=== PATIENT | male | born 1995 | race Two or more races ===

== ENCOUNTER 2016-12-20 15:17 | Emergency (ER) | payer SELFPAY ==
[~2016-12-20] VITALS: Ht 165.1 cm; Wt 65.8 kg
--- NOTE | 2016-12-20 15:32 | PHYS DOC ---
Adult General Chief Complaint Chief Complaint: HEAT EXPOSURE HPI HPI Patient is a 21 year old male who presents with one to 2 hour history of sharp left-sided chest discomfort slightly worse with breathing. Increases with movement of the left arm; denies shortness of breath; mild nausea; no vomiting no diarrhea. 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 He's had these exact symptoms prior to this for several months on and off and was treated for chest inflammation about 2 weeks ago. Review of Systems Review of Systems Constitutional: Denies fever or chills [] Eyes: Denies change in visual acuity, redness, or eye pain [] HENT: Denies nasal congestion or sore throat [] Respiratory: Denies cough or shortness of breath [] Cardiovascular: No additional information not addressed in HPI [] GI: Denies abdominal pain, nausea, vomiting, bloody stools or diarrhea [] : Denies dysuria or hematuria [] Musculoskeletal: Denies back pain or joint pain [] Integument: Denies rash or skin lesions [] Neurologic: Denies headache, focal weakness or sensory changes [] Endocrine: Denies polyuria or polydipsia [] Current Medications Current Medications Current Medications Medications (Trade) Dose Ordered Sig/Sylvie Start Time Stop Time Status Last Admin Dose Admin Ketorolac Tromethamine (Toradol) 30 mg 1X ONCE 12/20/16 16:15 12/20/16 16:16 DC 12/20/16 16:14 30 MG Lorazepam (Ativan) 0.5 mg 1X ONCE 12/20/16 16:15 12/20/16 16:16 DC 12/20/16 16:15 0.5 MG Sodium Chloride 1,000 ml @ 1,000 mls/hr 1X ONCE 12/20/16 16:15 12/20/16 17:02 DC 12/20/16 16:13 1,000 MLS/HR Allergies Allergies Allergies Coded Allergies Type Severity Reaction Last Updated Verified No Known Drug Allergies 12/20/16 No Physical Exam Physical Exam Constitutional: Well developed, well nourished, no acute distress, non-toxic appearance. [] HENT: Normocephalic, atraumatic, bilateral external ears normal, oropharynx moist, no oral exudates, nose normal. [] Eyes: PERRLA, EOMI, conjunctiva normal, no discharge. [] Neck: Normal range of motion, no tenderness, supple, no stridor. [] Cardiovascular:Heart rate regular rhythm, no murmur [] Lungs & Thorax: Bilateral breath sounds clear to auscultation [tender to palpation left lateral chest.] Abdomen: Bowel sounds normal, soft, no tenderness, no masses, no pulsatile masses. [] Skin: Warm, dry, no erythema, no rash. [] Back: No tenderness, no CVA tenderness. [] Extremities: No tenderness, no cyanosis, no clubbing, ROM intact, no edema. [] Neurologic: Alert and oriented X 3, normal motor function, normal sensory function, no focal deficits noted. [] Psychologic: Affect normal, judgement normal, mood normal. [] Current Patient Data Vital Signs Vital Signs Date Time Temp Pulse Resp B/P (MAP) Pulse Ox O2 Delivery O2 Flow Rate FiO2 12/20/16 16:30 62 21 119/72 (88) 97 Room Air 12/20/16 15:27 99.2 99.2 Lab Values Laboratory Tests Test 12/20/16 16:04 POC Hemoglobin 15.0 g/dL (14-18) POC Hematocrit 44 % (37-52) POC Sodium 139 mmol/L (135-145) POC Potassium 3.9 mmol/L (3.5-5.0) POC Chloride 103 mmol/L (98-110) POC Total CO2 26 mmol/L (23-32) Anion Gap 14 mmol/L (6-14) POC Blood Urea Nitrogen 16 mg/dL (8-26) POC Creatinine 1.0 mg/dL (0.5-1.4) Glucose Level 104 mg/dL (70-99) H POC Ionized Calcium (Jose) 1.18 mmol/L (1.13-1.32) Laboratory Tests 12/20/16 16:04 EKG EKG EKG normal sinus rhythm rate of 71 no STEMI no ischemic changes QTC normal my interpretation [] Radiology/Procedures Radiology/Procedures Chest x-ray negative my review my interpretation [] Course & Med Decision Making Course & Med Decision Making Pertinent Labs and Imaging studies reviewed. (See chart for details) No risk factors for pulmonary embolism. We will treat the chest wall pain with anti-inflammatories; check basic labs to evaluate his fluid status and given him IV fluids for what appears to be also heat exhaustion. Do not suspect pulmonary embolism: Patient has no risk factors, not tachycardic not hypoxic. No emergent indication for CT of the chest or admission to the hospital. [440 reexam: Patient feels improved and is agreeable to going home. Chest pain appears to be atypical and is a negative chest x-ray EKG. He was given IV fluids. Counseled regarding staying in cool environment and rehydration.] Dragon Disclaimer Dragon Disclaimer This electronic medical record was generated, in whole or in part, using a voice recognition dictation system. Departure Departure Impression: Primary Impression: Pleurisy Additional Impressions: Chest pain Heat exhaustion Disposition: 01 HOME, SELF-CARE Condition: IMPROVED Patient Instructions: Heat Disorders-Brief, Pleurisy, [id number] Problem Qualifiers CHI SALCEDO MD Dec 20, 2016 15:32
--- NOTE | 2016-12-20 15:44 | RAD ---
Portable chest, 12/20/2016: History: Heat exposure, chest pain The heart size and pulmonary vascularity are normal. No pulmonary infiltrates are seen. There is no evidence of pleural fluid. IMPRESSION: No acute cardiopulmonary abnormality is detected.
--- NOTE | 2016-12-20 15:52 | EKG ---
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
[2016-12-20 16:10] LABS: POTASSIUM ISTAT 3.9 mmol/L (3.5-5.0)
[2016-12-20] MEDS ORDERED: KETOROLAC TROMETHAMINE 30 MG/ML INJ. IV ONE (16:15)
[2016-12-20] MEDS ORDERED: IV NORMAL SALINE 1000ML BAG 1,000 ML IV ONE (16:15)
[2016-12-20 16:30] VITALS: BP 119/72
== END 2016-12-20 16:57 | disposition home or self-care (01) ==
LOC: ER 15:17
DX: R09.1 Pleurisy (principal); T67.5XXA Heat exhaustion, unspecified, initial encounter; X30.XXXA Exposure to excessive natural heat, initial encounter; Y93.89 Activity, other specified; Y92.89 Other specified places as the place of occurrence of the external cause; Y99.8 Other external cause status
CPT/HCPCS: 71010; 80047; 93005; 96361; 96374; 96375; 99284; J1885; J2060; J7030; 36415

== ENCOUNTER 2017-09-03 16:02 | Emergency (ER) | payer SELFPAY ==
[2017-09-03] MEDS: IBUPROFEN 100 MG/5 ML ORAL.SUSP. PO (17:00)
[2017-09-03 17:48] LABS: INFLUENZA A PATIENT NEGATIVE (NEGATIVE); INFLUENZA B PATIENT NEGATIVE (NEGATIVE); OBC FLU VALID
[2017-09-04 08:32] LABS: NEGATIVE OBC STREP NEG; POSITIVE OBC STREP POS
== END 2017-09-03 17:49 | disposition home or self-care (01) ==
LOC: ER 16:02
DX: J02.0 Streptococcal pharyngitis (principal)
CPT/HCPCS: 87804; 87804-59; 87880; 99284